=== PATIENT | male | born 1995 | race Caucasian/White ===

== ENCOUNTER 2017-01-12 09:02 | Emergency (ER) | payer MEDICAID ==
[~2017-01-12] VITALS: Ht 167.6 cm; Wt 54.4 kg
[2017-01-12 09:08] VITALS: BP 123/74
--- NOTE | 2017-01-12 09:50 | NUR ---
PATIENT PRESENTS TO ED WITH PT BIB MOTHER FOR EVALUATION OF SOB X2 DAYS; DENIES N/V/D; SKIN IS PINK/WARM/DRY; AAOX4 WITH EVEN AND STEADY GAIT; LUNGS CLEAR BL; HR EVEN AND REGULAR; PT DENIES ANY FEVER, CP, SOB, OR COUGH AT THIS TIME; PATIENT STATES PAIN OF 3/10 AT THIS TIME; VSS; PATIENT POSITIONED FOR COMFORT; HOB ELEVATED; BEDRAILS UP X2; BED DOWN. ER MD MADE AWARE OF PT STATUS.
[2017-01-12 11:25] VITALS: BP 108/61
--- NOTE | 2017-01-12 11:25 | NUR ---
Patient discharged with v/s stable. Written and verbal after care instructions given and explained. Patient verbalized understanding. Ambulatory with steady gait. All questions addressed prior to discharge. Advised to follow up with PMD.
== END 2017-01-12 11:25 | disposition home or self-care (01) ==
LOC: MED 09:02
DX: R42 Dizziness and giddiness (principal); R11.0 Nausea; R06.02 Shortness of breath